=== PATIENT | male | born 1975 | race American Indian/Alaskan Native ===

== ENCOUNTER 2018-09-05 03:22 | Emergency (ER) | payer SELFPAY ==
[2018-09-05 03:37] VITALS: TEMP 98.6
[2018-09-05] MEDS ORDERED: Tdap Vaccine 0.5 ml Vial (10-64 yrs) IM ONE (03:52)
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
[2018-09-05 04:53] LABS: BASO # 0.1 K/uL (0.0-0.2); BASO % 0.8 % (0.0-2.0); EOS # 0.2 K/uL (0.0-0.7); EOS % 1.6 % (0.0-4.0); HEMOGLOBIN 14.3 g/dL (12.0-18.0); LYMPH # 1.3 K/uL (1.0-4.3); MEAN CELL VOLUME 82.3 fl (80.0-94.0); MEAN CORPUSCULAR HEMOGLOBIN 26.9 pg (27.0-31.0); MEAN CORPUSCULAR HGB CONC 32.7 g/dL (33.0-37.0); MEAN PLATELET VOLUME 10.4 fl (7.2-11.7); MONO # 0.6 K/uL (0.0-0.8); NEUT # 7.5 K/uL (1.8-7.0); NEUT % 77.6 % (50.0-75.0); RBC 5.31 Mil/uL (4.40-5.90); WHITE BLOOD COUNT 9.6 K/uL (4.8-10.8)
[2018-09-05 05:01] LABS: ALB/GLOB RATIO 1.3 (1.0-2.1); ALBUMIN 4.6 g/dL (3.5-5.0); ALT/SGPT 44 U/L (21-72); AST/SGOT 26 U/L (17-59); BLOOD UREA NITROGEN 12 mg/dl (9-20); CALCIUM 9.4 mg/dL (8.4-10.2); GFR NON-AFRICAN AMERICAN > 60
[2018-09-05] MEDS ORDERED: Sodium Chloride 0.9% 1,000 ML IV STA (05:04)
[2018-09-05] MEDS ORDERED: Insulin Regular 100 units/ml IVP STA (05:04)
[2018-09-05] MEDS ORDERED: Lidocaine 1% w Epi 1:100,000 Inj INFIL ONE (05:06)
[2018-09-05] MEDS ORDERED: Insulin Regular 100 units/ml ONE (05:38)
[2018-09-05 06:33] LABS: BARBITURATES, UR NEGATIVE (NEGATIVE); BENZODIAZEPINES, UR NEGATIVE (NEGATIVE); OPIATES, UR NEGATIVE (NEGATIVE); PHENCYCLIDINE, UR NEGATIVE (NEGATIVE)
[2018-09-05 07:59] LABS: URINE BILIRUBIN NEGATIVE (NEGATIVE); URINE BLOOD MODERATE (NEGATIVE); URINE CLARITY SLIGHTY-CLOUDY (Clear); URINE COLOR STRAW (YELLOW); URINE GLUCOSE (UA) >=500 mg/dL (NEGATIVE); URINE LEUKOCYTE ESTERASE MOD Leu/uL (Negative); URINE PROTEIN NEGATIVE (NEGATIVE); URINE UROBILINOGEN 0.2-1.0 mg/dL (0.2-1.0)
[2018-09-05 08:14] LABS: URINE BACTERIA RARE (<OCC)
[2018-09-05 08:20] VITALS: BP 126/77; PULSE 74; RESP 18; O2SAT 99
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
== END 2018-09-05 08:10 | disposition home or self-care (01) ==
LOC: H.ER 03:22
DX: S01.81XA Laceration without foreign body of other part of head, initial encounter (principal); T79.7XXA Traumatic subcutaneous emphysema, initial encounter; R73.9 Hyperglycemia, unspecified; X58.XXXA Exposure to other specified factors, initial encounter; Z23 Encounter for immunization
CPT/HCPCS: 70450; 70486; 72125; 80053; 81003; 82948; 85025; 90471; 90715; 96361; 96374; 99285; G0480; J7030